=== PATIENT | female | born 1955 | race Caucasian/White ===

== ENCOUNTER 2017-12-29 13:40 | Emergency (ER) | payer OTHER, SELFPAY ==
[~2017-12-29] VITALS: Ht 167.6 cm; Wt 67.0 kg
[2017-12-29] MEDS ORDERED: SODIUM BICARB 8.4%, 50ML SYRINGE ONE (14:00)
[2017-12-29] MEDS ORDERED: EPINEPHRINE SYRINGE 0.1 MG/ML, 10ML ONE ×3 (14:00→16:30)
[2017-12-29] MEDS ORDERED: ATROPINE SYRINGE 0.1 MG/ML, 10ML ONE (14:00)
[2017-12-29] MEDS ORDERED: NALOXONE 1 MG/ML, 2ML ONE (14:00)
[2017-12-29] MEDS ORDERED: SODIUM CHLORIDE FLUSH 10ML SYR IVF ONE (14:00)
[2017-12-29] MEDS ORDERED: SUCCINYLCHOLINE 20 MG/ML, 10ML ONE (14:00)
[2017-12-29] MEDS ORDERED: SODIUM BICARBONATE 1 MEQ/ML, 50ML VIAL IVPush ONE (14:12)
[2017-12-29 14:14] LABS: ALANINE AMINOTRANSFERASE 79 U/L (12-78); ANION GAP 25 mmol/L (5-15); CALCIUM 6.8 mg/dL (8.5-10.1); CHLORIDE 113 mmol/L (98-107); CREATININE 9.98 mg/dL (0.55-1.02)
[2017-12-29 14:16] LABS: ALKALINE PHOSPHATASE 235 U/L (45-117); BILIRUBIN,TOTAL 14.7 mg/dL (0.2-1.0); TOTAL PROTEIN 4.1 g/dL (6.4-8.2); TROPONIN I < 0.015 ng/mL (0.000-0.045)
[2017-12-29 14:22] LABS: INTERNATIONAL NORMALIZED RATIO 3.4 (0.93-1.1); PROTHROMBIN TIME 34.2 Seconds (9.6-11.5)
[2017-12-29 14:27] LABS: ACETAMINOPHEN < 2 mcg/mL (10-30)
[2017-12-29 14:28] LABS: SALICYLATE LEVEL < 1.7 mg/dL (2.8-20.0)
[2017-12-29] MEDS ORDERED: ATROPINE SYRINGE 0.1 MG/ML, 10ML IVPush ONE (14:30)
[2017-12-29] MEDS ORDERED: EPINEPHRINE 1 MG/ML, 1ML IVPush ONE (14:30)
[2017-12-29] MEDS ORDERED: SUCCINYLCHOLINE 20 MG/ML, 10ML IVPush ONE (14:30)
[2017-12-29] MEDS ORDERED: NOREPINEPHRINE 4 MG in SODIUM CHLORIDE 0.9% 246 ML IV ONE (14:52)
[2017-12-29] MEDS ORDERED: LACTATED RINGERS 1,000 ML IVBOLUS ONE (15:00)
[2017-12-29 15:06] LABS: MD YES; MEAN CORPUSCULAR HEMOGLOBIN 36.9 pg (27.0-34.8); MEAN CORPUSCULAR HGB CONC 34.1 g/dL (32.4-35.8); MEAN CORPUSCULAR VOLUME 108.3 fL (80-100); MEAN PLATELET VOLUME 9.3 fL (7.4-10.4); PLATELET COUNT 85 x10^3/uL (130-400)
[2017-12-29 15:08] LABS: BAND#(MANUAL) 1.29 x10^3/uL; BANDS%(MANUAL) 8 % (0-7); EOS#(MANUAL) 0.16 x10^3/uL (0.0-0.4); EOS% (MANUAL) 1 % (1-7); LYMPH#(MANUAL) 1.13 x10^3/uL (1-3.4); LYMPHS% (MANUAL) 7 % (22-44); MONOS#(MANUAL) 0.16 x10^3/uL (0.3-2.7); MONOS% (MANUAL) 1 % (2-9); MYELOCYTES# (MANUAL) 0.16 x10^3/uL (0-0); MYELOCYTES% (MANUAL) 1 % (0-0); NRBC % (MANUAL) 2 % (0-1); SEGS% (MANUAL) 82 % (42-75)
[2017-12-29 15:09] LABS: ANISOCYTOSIS 1+
[2017-12-29 15:10] LABS: PMNS WITH VACUOLES 1+; TOXIC GRAN 1+
[2017-12-29 15:11] LABS: <PLATELET ESTIMATE> DECREASED; LARGE PLATELETS 1+; POLYCHROMASIA 1+
[2017-12-29] MEDS ORDERED: METO-95 PO (15:11)
[2017-12-29] MEDS ORDERED: SODIUM BICARB 8.4%,50ML SYR. 150 MEQ in D5%-0.45% NACL 1,000 ML IV SCH (15:12)
[2017-12-29] MEDS ORDERED: LISI-170 PO (15:12)
[2017-12-29] MEDS ORDERED: SERT50TA5 PO (15:12)
[2017-12-29] MEDS ORDERED: morphine SULFATE 10 MG/ML, 1ML IVPush PRN (15:30)
[2017-12-29] MEDS ORDERED: LINEZOLID PMX 600MG/300ML 300 ML IV SCH (15:30)
[2017-12-29] MEDS ORDERED: LORazepam 2 MG/ML, 1ML IVPush PRN ×2 (15:30→16:00)
[2017-12-29] MEDS ORDERED: SODIUM CHLORIDE 0.9%, 500ML IVBOLUS ONE (15:30)
[2017-12-29] MEDS ORDERED: PIPERACILLIN/TAZO 2.25 GM in SODIUM CHLORIDE 0.9% 50 ML IV SCH (15:30)
[2017-12-29] MEDS ORDERED: NOREPINEPHRINE 4 MG in SODIUM CHLORIDE 0.9% 246 ML IV PRN (15:30)
[2017-12-29] MEDS ORDERED: ONDANSETRON ODT 4 MG PO PRN (15:30)
[2017-12-29] MEDS ORDERED: ALBUMIN HUMAN 25% 100 ML IV SCH (15:30)
[2017-12-29] MEDS ORDERED: ONDANSETRON 2MG/ML, 2ML IVPush PRN (15:30)
[2017-12-29] MEDS ORDERED: MIDAZOLAM HCL 25 MG in SODIUM CHLORIDE 0.9% 245 ML IV PRN (15:30)
[2017-12-29] MEDS ORDERED: EPINEPHRINE 2 MG in SODIUM CHLORIDE 0.9% 248 ML IV PRN (15:30)
[2017-12-29] MEDS ORDERED: VASOPRESSIN 100 UNIT in SODIUM CHLORIDE 0.9% 495 ML IV PRN (15:30)
[2017-12-29 15:44] VITALS: BP 91/39
[2017-12-29] MEDS ORDERED: ATROPINE OPHTH SOLN 1%, 5ML PO PRN (16:00)
[2017-12-29] MEDS ORDERED: LACTULOSE 10 GM/15 ML UDC PO SCH (16:00)
[2017-12-29] MEDS ORDERED: LORazepam 2 MG/ML, 1ML ONE (16:03)
[2017-12-29] MEDS: morphine SULFATE 10 MG/ML, 1ML IVPush PRN ×2 (16:06→16:13)
[2017-12-29] MEDS ORDERED: MORPHINE SULFATE 4 MG/ML, 1ML ONE (16:08)
[2017-12-30] MEDS ORDERED: PANTOPRAZOLE 40 MG IV IVPush SCH (07:30)
== END 2017-12-29 22:09 | disposition expired ==
LOC: ED 14:54 → UNDOADMIN 15:12 → EDIP 15:12 → ED 22:09
DX: I46.9 Cardiac arrest, cause unspecified (principal); D69.6 Thrombocytopenia, unspecified; T68.XXXA Hypothermia, initial encounter; K86.0 Alcohol-induced chronic pancreatitis; I10 Essential (primary) hypertension
CPT/HCPCS: 31500; 36415; 36556; 36569; 36600; 71045; 80053; 80307; 80329; 82140; 82550; 82803; 83605; 83690; 83930; 84484; 85025; 85610; 85730; 86850; 86900; 87070; 87077; 87186; 87205; 92950; 93005; 94002; 96374; 96375; 99291; 99292; J0171; J0330; J0461; J2060; J2270; J2310; J7050; 96365; G0480